=== PATIENT | male | born 1980 ===

== ENCOUNTER 2017-09-06 11:32 | Emergency (ER) | payer SELFPAY ==
--- NOTE | 2017-09-06 12:09 | EDM.PDOC ---
ED HPI GENERAL MEDICAL PROBLEM - General Chief Complaint: Respiratory Problem Stated Complaint: COUGH Time Seen by Provider: 09/06/17 12:08 Source of Information: Reports: Patient - History of Present Illness INITIAL COMMENTS - FREE TEXT/NARRATIVE: Patient is here today for evaluation of worsening illness. He states that he started to feel ill approximately 6 weeks ago with GI symptoms. He states those symptoms have resolved. He then had some congestion and sinus symptoms which have resolved. Patient primary complaint today is productive cough, he states that his sputum is clear. He states that he coughs so hard that he does vomit at times. He also is concerned about his back pain which she states started when he was coughing quite hard and he feels that he pulled a muscle. He does report chronic back pain, states he has been on narcotics in the past but is not currently. He reports degenerative disc disease. He is currently taking Galan's cough drops and vitamin C. Not on any medications on a regular basis. 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 He states that he had gotten bronchitis and respiratory infections frequently in the past but has not had these at all in the last 5 years. Patient grew up in the [place], [place]. He states that he is living in [place] area working in the [place] for the past 3 years. Patient does not have a PCP. Treatments DIRECTOR OF INCOME TAX: Reports: Other (see below) Other Treatments DIRECTOR OF INCOME TAX: galan cough drops Back Pain Score (Numeric/FACES): 9 - Related Data Allergies Allergy/AdvReac Type Severity Reaction Status Date / Time naproxen [From Naprosyn] Allergy Airway Verified 09/06/17 12:03 Tightness Home Meds: Home Meds Albuterol [IJD: Albuterol HFA] 1 puff .XX Q6HR PRN #8 gm 09/06/17 [Rx] Azithromycin [IJD: Azithromycin] 250 mg PO DAILY #6 tab 09/06/17 [Rx] Cyclobenzaprine [Flexeril] 10 mg PO BID PRN #30 tablet 09/06/17 [Rx] Past Medical History HEENT History: Reports: Otitis Media Respiratory History: Reports: Bronchitis, Recurrent Musculoskeletal History: Reports: Back Pain, Chronic Neurological History: Reports: Migraines Psychiatric History: Reports: Anxiety, Depression, PTSD ED ROS GENERAL - Review of Systems Review Of Systems: See Below Constitutional: Reports: Fever, Chills, Malaise, Weakness, Fatigue, Decreased Appetite HEENT: Denies: Ear Discharge, Ear Pain, Nose Pain, Rhinitis, Sinus Problem Respiratory: Reports: Wheezing, Cough, Sputum. Denies: Shortness of Breath Cardiovascular: Reports: No Symptoms GI/Abdominal: Reports: Decreased Appetite : Reports: No Symptoms Musculoskeletal: Reports: Back Pain Skin: Reports: No Symptoms Neurological: Reports: No Symptoms Psychiatric: Reports: No Symptoms ED EXAM, GENERAL - Physical Exam Exam: See Below Exam Limited By: No Limitations General Appearance: Alert, WD/WN, Anxious Ears: Normal External Exam, Normal Canal, Hearing Grossly Normal, Normal TMs Nose: Normal Inspection, Normal Mucosa. No: Nasal Drainage Throat/Mouth: Normal Inspection, Normal Oropharynx, Perioral Cyanosis Head: Atraumatic Neck: Normal Inspection Respiratory/Chest: Wheezing (Scattered mild wheezing bilaterally). No: Decreased Breath Sounds, Crackles, Rales Cardiovascular: Regular Rate, Rhythm, No Murmur, No Rub GI/Abdominal: Normal Bowel Sounds, Soft, Non-Tender Back Exam: Normal Inspection, Paraspinal Tenderness (Lumbar and thoracic) Neurological: Alert, Oriented Psychiatric: Anxious, Other Skin Exam: Warm, Dry, Intact Course - Vital Signs Last Recorded V/S: Last Vital Signs Temp 98.1 F 09/06/17 11:57 Pulse 106 H 09/06/17 11:57 Resp 20 09/06/17 11:57 BP 141/98 H 09/06/17 11:57 Pulse Ox 97 09/06/17 11:57 - Orders/Labs/Meds Orders: Active Orders 24 hr Category Date Time Status Chest 2V [CR] Stat Exams 09/06/17 12:22 Taken Labs: Laboratory Tests 09/06/17 09/06/17 Range/Units 12:45 12:45 WBC 11.74 H (4.23-9.07) K/mm3 RBC 5.38 (4.63-6.08) M/mm3 Hgb 15.7 (13.7-17.5) gm/L Hct 46.8 (40.1-51.0) % MCV 87.0 (79.0-92.2) fl MCH 29.2 (25.7-32.2) pg MCHC 33.5 (32.2-35.5) g/dl RDW Std Deviation 43.4 (35.1-43.9) fL Plt Count 240 (163-337) K/mm3 MPV 10.1 (9.4-12.3) fl Neutrophils % (Manual) 61 H (40-60) % Band Neutrophils % 0 (0-10) % Lymphocytes % (Manual) 28 (20-40) % Atypical Lymphs % 0 % Monocytes % (Manual) 10 (2-10) % Eosinophils % (Manual) 1 (0.8-7.0) % Basophils % (Manual) 0 L (0.2-1.2) Platelet Estimate Adequate RBC Morph Comment Normal Sodium 139 (136-145) mEq/L Potassium 4.1 (3.5-5.1) mEq/L Chloride 103 (98-107) mEq/L Carbon Dioxide 28 (21-32) mEq/L Anion Gap 12.1 (5-15) BUN 12 (7-18) mg/dL Creatinine 1.2 (0.7-1.3) mg/dL Est Cr Clr Drug Dosing 88.90 mL/min Estimated GFR (MDRD) > 60 (>60) mL/min BUN/Creatinine Ratio 10.0 L (14-18) Glucose 101 (74-106) mg/dL Calcium 9.3 (8.5-10.1) mg/dL Total Bilirubin 1.0 (0.2-1.0) mg/dL AST 16 (15-37) U/L ALT 30 (16-63) U/L Alkaline Phosphatase 74 (46-116) U/L C-Reactive Protein 2.1 H* (<1.0) mg/dL Total Protein 7.4 (6.4-8.2) g/dl Albumin 3.9 (3.4-5.0) g/dl Globulin 3.5 gm/dL Albumin/Globulin Ratio 1.1 (1-2) Meds: Medications Discontinued Medications Generic Name Dose Route Start Last Admin Trade Name Freq PRN Reason Stop Dose Admin Sodium Chloride 1,000 mls @ 999 mls/hr 09/06/17 12:22 09/06/17 12:46 Normal Saline IV 09/06/17 13:22 999 mls/hr ONETIME ONE Administration - Re-Assessments/Exams Free Text/Narrative Re-Assessment/Exam: Mild wheezing on auscultation, O2 97% on room air. Chest x-ray demonstrates no acute effusion or pneumonia, official report is pending. WBC elevated at 11.74, 61% neutrophils and no bands. CRP is 2.1. Influenza A/ B are both negative. Will treat with azithromycin 5 days, albuterol inhaler as needed. Patient does have chronic back pain, likely acute strain on top of this with coughing. Will give him cyclobenzaprine as needed and recommended Tylenol or ibuprofen for the pain. Patient is to follow-up in the clinic next week or sooner if needed. 09/06/17 13:34 Departure - Departure Time of Disposition: 13:28 Disposition: Home, Self-Care 01 Condition: Good Clinical Impression: Bronchitis, Muscle strain - Discharge Information Prescriptions: Albuterol [IJD: Albuterol HFA] 1 puff .XX Q6HR PRN #8 gm PRN Reason: Wheezing Azithromycin [IJD: Azithromycin] 250 mg PO DAILY #6 tab Cyclobenzaprine [Flexeril] 10 mg PO BID PRN #30 tablet PRN Reason: Muscle Spasm Instructions: Acute Bronchitis, [id number] Referrals: PCP,None [Primary Care Provider] - Forms: ED Department Discharge Additional Instructions: Rest, increase fluids. Take the full course of your antibiotic and use your inhaler as needed. Follow-up in the clinic next week if not mostly resolved or certainly return to ER if needed. You may schedule this at [phone]. - My Orders Last 24 Hours: My Active Orders 09/06/17 12:22 Chest 2V [CR] Stat - Assessment/Plan Last 24 Hours: My Active Orders 09/06/17 12:22 Chest 2V [CR] Stat
[2017-09-06] MEDS ORDERED: Sodium Chloride 0.9% 1,000 ML IV ONE (12:22)
--- NOTE | 2017-09-08 07:25 | CR ---
Chest: Two views of the chest were obtained. Comparison: No prior study. Heart size and mediastinum are normal. Lungs are clear. Bony structures are unremarkable. Impression: 1. Nothing acute is identified on two-view chest x-ray. Diagnostic code #1
== END 2017-09-06 13:47 | disposition home or self-care (01) ==
LOC: JD.ED 11:32
DX: J40 Bronchitis, not specified as acute or chronic (principal); S39.012A Strain of muscle, fascia and tendon of lower back, initial encounter; S29.012A Strain of muscle and tendon of back wall of thorax, initial encounter; Z88.5 Allergy status to narcotic agent; X58.XXXA Exposure to other specified factors, initial encounter
CPT/HCPCS: 36415; 71020; 80053; 85025; 86140; 87804; 96360; 99283; J7040